=== PATIENT | female | born 1975 | race Caucasian/White ===

== ENCOUNTER → 2022-10-07 15:08 | Outpatient (BNVA) | payer MEDICARE, OTHER, SELFPAY | PROVIDERS: Visit Provider Physician Assistant ==

== ENCOUNTER 2022-12-16 15:45 | Outpatient (AMB) | payer OTHER, MEDICARE, SELFPAY ==
--- NOTE | 2022-12-16 15:49 | A.OFFVIS_ITS ---
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 He heard about our program from google search. His goal is to lose weight and achieve a healthy lifestyle as well as to improve, if not resolve, obesity related medical conditions, including KHLOE. He reports first being concerned about his weight about 34 years ago, highest weight to date was 280. Current weight is 273 with a BMI of 44.1. He has tried multiple methods of weight loss including fad diets without permanent results. He lives alone. 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 Hx of atrial ablation for AF at [facility] 04/2018. Seen by Cardiology, at [place], slightly enlarged atrium, no further recommendation except weight loss. He is a vegetarian He wakes at:?6 am, and goes to bed at?10 pm. Dinner is at 6 pm. Breakfast: chick pea pasta AM snack: energy snack balls Lunch: veggie hot dog w veg chilie PM snack: dried mushrooms/herrera seaweed Dinner: tempeh, tofu, veg After dinner: yogurt Other snacks: chips Liquids: 60 oz seltzer, no soda, 24 oz oj w immunity +, green tea/black tea Alcohol/marijuana/tobacco intake: no etoh, rare edible cannabis, no tobacco Exercise: vertical rowing machine, no gym membership(does not want t join), martial arts Tae Ruddy Do 3 x per week. GERD score: 0 INDERJIT score: 1 ESS score: 12 QOL score: 69 PFSH Surgical History Hx of colonoscopy Hx of prior ablation treatment Family History Mother No problems noted. Father No problems noted. Brother No problems noted. Brother No problems noted. Social History Alcohol intake: never Patient Tobacco Use Status: Never used Tobacco Review of Systems Const All systems reviewed & are unremarkable except as noted in HPI and below Physical Exam Vital Signs: Last Vital Signs Temp 97.8 F 12/16/22 15:53 Pulse 78 12/16/22 15:53 BP 122/60 12/16/22 15:53 Pulse Ox 97 12/16/22 15:53 Oxygen Delivery Method Room Air 12/16/22 15:53 BMI result Body Mass Index 48.4 Const General: cooperative, healthy appearing and no acute distress Orientation/consciousness: patient oriented x3 HEENT Head: Yes normal to inspection Ears: hearing grossly normal bilaterally General nose exam: Normal external nose present Face and sinus: Yes normal facial exam Eyes General: appearance normal, both eyes and all related structures Resp Effort & Inspection: normal respiratory effort Auscultation: clear to auscultation bilaterally Cardio Rate: regular rate Rhythm: regular rhythm Heart sounds: S1 normal heart sound present and S2 normal heart sound present GI Inspection: Yes normal to inspection, No distended and Yes obesity Palpation (GI): Soft to palpation, nontender and no guarding Auscultation: normal bowel sounds Skin General skin exam: no rashes or lesions noted Neuro General: patient oriented x3 Extrem General: No edema Psych Appearance: grossly normal Mental Status: mental status grossly normal Speech and movement: Normal speech and movement present Affect: normal affect Attitude: cooperative Assessment & Plan Assessment & Plan (1) Morbid obesity: Code(s): E66.01 - Morbid (severe) obesity due to excess calories Plan: This is a?47 yo male who will start our SWL program to prepare for bariatric surgery.? Blood work, h pylori , CXR, ECG, Abd US and UGI have been ordered. He is being scheduled for RD and BH initial consultations. He will start SWL classes and watch the first three videos before his next appointment. ? Adequate sleep of 7-8 hours per night discussed, awakening at 6 am and going to bed around 10 pm ? Purchase body composition analyzer scale (Manjit cuevas or Mary recommended) and check weight weekly. The best time to do this is first thing in the morning after going to the bathroom. 1. Nutritional counseling: Be sure to careful read the number of scoops per shake Start with 3 Orgain shakes ([employer], [employer], [employer], [employer]) First shake (2 scoops in 8 oz low fat unsweetened almond milk or water) at 7am- 9am, Second shake, (2 scoops in 8 oz low fat unsweetened almond milk or water) at 11am-1pm 1 protein bar (Fulfil bars at [employer], [employer], or [employer]) at 2pm-4pm. Dinner at 6pm (10 forks of protein and 10 forks of salad/vegetables). Meal to include lean protein (tofu, tempeh, seiten), cooked vegetables or a salad with olive oil and/or fruits (berries, pears, apples, kiwi). Avoid salt, breads, potatoes, rice, pasta, desserts. Another shake with 1 scoop in 8 oz unsweetened almond milk at 8pm-10pm. Try to drink 64 oz of water daily and avoid soda and juices. ?2. Each shake would be drunk slowly, like coffee in a period of 2 hours. ?3. Cut each bar in 4 pieces and eat each piece in 30 min ?to make each bar last 2 hours. ?4. I emphasized the importance of measuring accurately the food portion and measure it carefully when serving the food on the plate ?5. The meal portions include 10 full-size forks of meat and 10 full-size forks of salad. You always eat the meat portion but you can replace up to half of the forks of salad/vegetables with rice, potatoes or pasta, or a fruit ?if you like. The less you do it the better weight loss will be. ?6. One full-size fork is what can be scooped on the fork without falling aside and not what can be bit with the fork. Use regular forks like those you find in a typical restaurant. ?7.? Please send me weight measurements as soon as possible and then once a week. Always include your diet and exercise plan. Alternatively come weekly at the office for weight checks and send me the measurements. ?8. Exercise counseling: Begin by watching a stretching for beginners video. Start slowly and begin to stretch your muscles. You should do this before and after each exercise session to prevent injury. You stated you did not want to join a gym but you do have the vertical rowing machine at home. Continue using this 3-4 days per week, trying to reach a goal of 400 calories burned each session. If you are doing 20 minutes per session per day currently, try to increase by 2 minutes per day next week. Increase by 2 minutes per day the week after as well and so on until you are able to burn 400 calories per session. If you feel as though you can in crease by 5 minutes, then byb all means, go for it. Tracking calories is essential. 9. Alternatively start walking outside daily, tracking calories with a goal of 300 calories per day, daily. You can download the charo [employer] which can track your time, distance and calories while walking outside. You press start i n the charo when you start and then stop when you are finished. 10.? It is important to communicate by text weekly how you are doing and your weight. 11. Please get labs, EKG and chest X-Ray within 1 week. 12. Discussed and answered all questions regarding?obtained consent to participate in the [facility]?Registry. 13. Please follow the diet plan exactly, without any change. If you do not like something about the plan or you feel hungry, you need to communicate with me so I can help you revise the plan. You should not change the plan yourself. Text me at [phone] 14. Goal is to lose at least 12 pounds in the first month 15. Goal is to lose 10% of your weight before surgery, which is about 27 lbs. Ultimate weight goal: 246 lbs before surgery Patient is morbidly obese and is not considered stable at this time.?I spent a total of 70 minutes reviewing/updating records, examining the patient and counseling the patient on weight management as detailed above. Orders: Orders Vitamin B12 and Folate Today E66.01 - Morbid (severe) obesity due to excess calories Comprehensive Met. Panel Today E66.01 - Morbid (severe) obesity due to excess calories C Reactive Protein Today E66.01 - Morbid (severe) obesity due to excess calories Ferritin Today E66.01 - Morbid (severe) obesity due to excess calories Hemoglobin A1c Today E66.01 - Morbid (severe) obesity due to excess calories Insulin Today E66.01 - Morbid (severe) obesity due to excess calories IRON PROFILE Today E66.01 - Morbid (severe) obesity due to excess calories Lipid Panel Today E66.01 - Morbid (severe) obesity due to excess calories PTHI Today E66.01 - Morbid (severe) obesity due to excess calories TSH reflex Free T4 Today E66.01 - Morbid (severe) obesity due to excess calories Vitamin A Today E66.01 - Morbid (severe) obesity due to excess calories Vitamin B1 Today E66.01 - Morbid (severe) obesity due to excess calories Vitamin D 25-OH Total Today E66.01 - Morbid (severe) obesity due to excess calories Zinc Today E66.01 - Morbid (severe) obesity due to excess calories ECG 12 lead EKG Today E66.01 - Morbid (severe) obesity due to excess calories FL upper GI w air Today E66.01 - Morbid (severe) obesity due to excess calories Complete Blood Count Auto Diff Today E66.01 - Morbid (severe) obesity due to excess calories H Pylori Breath Test Today E66.01 - Morbid (severe) obesity due to excess calories US abdomen comp w elastography Today E66.01 - Morbid (severe) obesity due to excess calories XR chest 2V Today E66.01 - Morbid (severe) obesity due to excess calories Referrals Behavioral Health Referral E66.01 - Morbid (severe) obesity due to excess calories Nutrition/Dietitian Referral E66.01 - Morbid (severe) obesity due to excess calories Coding Level of Care Code New Pt Level 5 (55304) Diagnoses Morbid obesity E66.01 Time Spent (min) 70
[2022-12-16 15:53] VITALS: BP 122/60; PULSE 78; TEMP 36.6; O2SAT 97; BMI 48.4
== END 2022-12-16 17:34 | disposition home or self-care (01) ==
PROVIDERS: Visit Provider Physician Assistant Surgical
DX: E66.01 Morbid (severe) obesity due to excess calories (principal); Z68.42 Body mass index [BMI] 45.0-49.9, adult
CPT/HCPCS: 99205

== ENCOUNTER → 2022-12-16 15:45 | Outpatient (BNVA) | payer OTHER, MEDICARE, SELFPAY | PROVIDERS: Visit Provider Physician Assistant Surgical | DX: E66.01 Morbid (severe) obesity due to excess calories (principal); Z68.42 Body mass index [BMI] 45.0-49.9, adult | CPT/HCPCS: 99202 ==

== ENCOUNTER 2023-01-06 15:51 | Outpatient (AMB) | payer MEDICARE, OTHER, SELFPAY ==
--- NOTE | 2023-01-06 15:47 | A.OFFVIS_ITS ---
Intake VS Expanded 01/06/23 15:50 Height 5 ft 3 in Weight 263 lb BMI 46.6 Intake Visit Reasons: VIDEO Initial Nutrition SWL Art Coordinator Required: No Allergies No Known Allergies Allergy (Verified 12/16/22 15:52) HPI Nutrition Presentation Reason for consult elevated BMI Diet Assmnt Details Pt is a vegetarian - occasionally fish, eggs. minimal dairy. Has been a vegetarian since age 17 Two (7am and 11am) Protein shake Orgain 2 scoops with almond milk Bought orgain bars but is going to switch to zone 6pm dinner meal [employer] classes 3x per week , plus home exercise machines SWL online classes : none Was dx with afib 5 years ago. was inactive, started a new career and experienced a lot of weight regain . Previous weight loss methods attempted Tried IF but would get too hungry and make poor food choices Dietary counseling reduction Who buys your food self Who prepares/cooks your food self Meal frequency regular: lunch and dinner and irregular: breakfast Lifestyle Food frequency Fruit: daily, Vegetables: daily, Grains/pasta/breads/cereal (carbs): daily, Meat substitutes/nuts/seeds/legumes: daily, Water: daily (seltzers ) and Soda: never Diagnosis Nutrition problem #1 overweight/obesity As related to (etiology) #1 excess energy intake and physical inactivity As evidenced by (sign/symptom) #1 high BMI Monitoring/Goals Nutrition problem monitoring total energy intake, level of knowledge/skill, total PRO intake, total CHO intake and weight Outcome progress progressing Learning/Education Readiness to learn good Stages of change action Educational materials provided Yes Most Recent Diabetes Results: No Data to Display PFSH Surgical History Hx of colonoscopy Hx of prior ablation treatment Family History Mother No problems noted. Father No problems noted. Brother No problems noted. Brother No problems noted. Social History Alcohol intake: never Patient Tobacco Use Status: Never used Tobacco Assessment & Plan Assessment & Plan (1) Morbid obesity: Code(s): E66.01 - Morbid (severe) obesity due to excess calories Patient Instructions: Continue nutrition and exercise plans. complete online classes - link provided with educational information. f/u 02/10 3:30 Telehealth Telehealth Location of provider rendering services: practice address Location of patient: other (work, private location ) Patient Identification confirmed using: Name, : Yes Telehealth method: video Patient verbally consented to treatment: Yes Patient verbally consented to billing insurance company: Yes Patient informed of any privacy concerns related to visit: Yes Minutes spent on Phone/Video with Pt.: 35 Coding Level of Care Code Nutr Indiv Intake (82530) Diagnoses Morbid obesity E66.01 Time Spent (min) 35
[2023-01-06 15:50] VITALS: BMI 46.6
== END 2023-01-06 16:14 | disposition home or self-care (01) ==
LOC: HO.HBS 15:51
PROVIDERS: PCP Nurse Practitioner Family; Visit Provider Dietitian, Registered
DX: E66.01 Morbid (severe) obesity due to excess calories (principal)

== ENCOUNTER → 2023-01-06 15:51 | Outpatient (BNVA) | payer MEDICARE, OTHER, SELFPAY | PROVIDERS: PCP Nurse Practitioner Family; Visit Provider Dietitian, Registered | DX: E66.01 Morbid (severe) obesity due to excess calories (principal); Z68.42 Body mass index [BMI] 45.0-49.9, adult | CPT/HCPCS: 97802 ==

== ENCOUNTER 2023-02-03 14:30 | Outpatient (AMB) | payer OTHER, MEDICARE, SELFPAY ==
--- NOTE | 2023-02-03 14:06 | A.OFFWM_ITS ---
Intake Intake Visit Reasons: VIDEO BH Intake Allergies No Known Allergies Allergy (Verified 12/16/22 15:52) PFSH Surgical History Hx of colonoscopy Hx of prior ablation treatment Family History Mother No problems noted. Father No problems noted. Brother No problems noted. Brother No problems noted. Social History Alcohol intake: never Patient Tobacco Use Status: Never used Tobacco Behavioral Health Assessment Weight Management Therapy Therapy Notes Details Pt is looking to have weight loss surgery to help improve his health and quality of life. He has been in therapy with Leslie Brown [phone] since 2019 through virtual appointments, also was seeing psychiatrist nurse but not currently. Pt has no history of inpatient psychiatric admissions or problems with drugs or alcohol. Patient stated that he is on the spectrum and is being given mood stabilizer to keep him even keel . He later reported a history of depression and not taking very good care of himself but no history of self harming behaviors or suicide attempts. Presenting Concerns Referral Source provider Reason for referral weight loss surgery evaluation Precipitating Event obesity Living Situation Current Living Situation Rent At risk of losing current housing? No Satisfied with current living situation? Yes Comments Patient lives alone. His girlfriend of two years lives in [place]. Food/Weight/Diet Expectations of change weight loss and maintenance History/Relationship with food Pt stated that he was eating processed foods, high carb, also mindless eating snack foods. History/Relationship with weight He reported that he is currently at his heaviest. 5 years ago he was diagnosed with Afib. History/Relationship with dieting IF, vegetarian on and off since 17 Binge Eating Do you frequently eat large amounts of food in short periods of time, not feeling physically hungry? No Night Eating Do you wake up at least once during the night to eat? No If you wake up in the night, do you find that it is necessary to eat something in order to fall back asleep? 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 none Education Highest grade completed college Preferred learning style Auditory, Verbal, Written, Learn by doing and Visual Currently enrolled in educational program? No Interested in further educational program? 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 No Meaningful activities martial arts, reading, drawing, writing Financial Situation Describe current financial situation Occasional struggle Financial assistance? None Service Service? No Mental Health and Addiction Treatment Current/Past substance abuse? No Current/Past addictive behavior concerns? No Pain Screening Current pain? No Pain in the last few months? No Medications Is the patient compliant with medications? Yes Does the patient have Love Guardian in place? Not applicable Does the patient use complimentary health approaches? No Trauma/Abuse History History of trauma? Yes Assessment & Plan Assessment & Plan (1) Autism spectrum disorder: Code(s): F84.0 - Autistic disorder (2) Morbid obesity: Code(s): E66.01 - Morbid (severe) obesity due to excess calories Plan Patient is doing well per his report but does find the meal plan rigid . Questionnaires were not given at new patient appointment. His therapist will be contacted after he signs a release of information at his next appointment for her. He will be seen again in one month. Telehealth Telehealth Location of provider rendering services: practice address Location of patient: other Patient Identification confirmed using: Name, : Yes Telehealth method: video Patient verbally consented to treatment: Yes Patient verbally consented to billing insurance company: Yes Patient informed of any privacy concerns related to visit: Yes Minutes spent on Phone/Video with Pt.: 45 Coding Level of Care Code Tele Psy Acaciag Veronica ([id number]) Diagnoses Autism spectrum disorder F84.0 Morbid obesity E66.01 Time Spent (min) 45
== END 2023-02-03 14:46 | disposition home or self-care (01) ==
LOC: HO.HBST 14:30
PROVIDERS: PCP Nurse Practitioner Family; Visit Provider Counselor Mental Health
DX: F84.0 Autistic disorder (principal); E66.01 Morbid (severe) obesity due to excess calories; Z68.41 Body mass index [BMI] 40.0-44.9, adult
CPT/HCPCS: 90791

== ENCOUNTER → 2023-02-03 14:30 | Outpatient (BNVA) | payer OTHER, MEDICARE, SELFPAY | PROVIDERS: PCP Nurse Practitioner Family; Visit Provider Counselor Mental Health ==

== ENCOUNTER → 2023-02-08 15:00 | Outpatient (BNVA) | payer OTHER, MEDICARE, SELFPAY | PROVIDERS: PCP Nurse Practitioner Family; Visit Provider Physician Assistant Surgical | DX: E66.01 Morbid (severe) obesity due to excess calories (principal) ==

== ENCOUNTER 2023-08-25 15:50 | Outpatient (AMB) | payer OTHER, MEDICARE, SELFPAY ==
--- NOTE | 2023-08-25 15:52 | A.OFFVIS_ITS ---
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 He was last seen in the office 02/08/2023, at that time his weight was 256.8 lb with a BMI of 41.4. He decided he needed to take a break from the program. Weight today is 272.6 lb with a BMI of 48.3. He continues to mourn the of his mother and her recently broke up with his girlfriend of 2 years. He restarted his meal plan and exercise routine about 2 weeks ago. There has been a weight loss of 16.2 pounds since initiating the surgical weight loss program on 10.06 with a total body weight loss of 12/16/22 %. Pre op work up completed as follows: SWL classes:? 09/05 BH appts: f/u 03/03/23 ? ? RD appts: 02/10/23 Labs: not yet done H. pylori: not yet done CXR: not yet done EKG: not yet done ABD U/S: not yet done UGI: not yet done The patient reports he feels as though his belly size has reduced and his energy level is improved. He was not following the meal plan exactly as he would sometimes not do the third shake. . Current meal plan includes: 3 Orgain shakes First shake (2 scoops in 8 oz low fat unsweetened almond milk or water) at 7am-9am, Second shake, (2 scoops in 8 oz low fat unsweetened almond milk or water) at 11am-1pm 1 protein bar (atlas bar-20 gm) at 2pm-4 pm. Dinner at 6pm (10 forks of protein and 10 forks of salad/vegetables). Another shake with 2 scoop in 8 oz unsweetened almond milk at 8pm-10pm. Drinking 80-100 oz of water Current exercise plan includes: martial arts 2-3 x per week, [employer] machine, 5 days per week. PFSH Surgical History Hx of colonoscopy Hx of prior ablation treatment Family History Mother No problems noted. Father No problems noted. Brother No problems noted. Brother No problems noted. Social History Alcohol intake: never Patient Tobacco Use Status: Never used Tobacco Physical Exam Vital Signs: Last Vital Signs Temp 96.7 F L 08/25/23 15:59 Pulse 76 08/25/23 15:59 BP 149/67 H 08/25/23 15:59 Pulse Ox 95 08/25/23 15:59 Oxygen Delivery Method Room Air 08/25/23 15:59 BMI result Body Mass Index 44.0 Const General: healthy appearing and no acute distress Resp Effort & Inspection: normal respiratory effort Auscultation: clear to auscultation bilaterally Cardio Rate: regular rate Rhythm: regular rhythm GI Auscultation: normal bowel sounds Extrem General: Yes normal to inspection Assessment & Plan Assessment & Plan (1) Morbid obesity: Code(s): E66.01 - Morbid (severe) obesity due to excess calories Plan: Patient will restart the Surgical weight loss program. He states that he is now committed to his health and despite the recent loss of his mother and recent break-up with his girlfriend, he feels as though this time we will now allow him to focus on himself and his ability to better his health. We will change his meal plans slightly to incorporate the [place] protein bar that he wishes to use as well as continued use of orgain protein powder 3 Orgain shakes First shake (2 scoops in 8 oz low fat unsweetened almond milk or water) at 7am-9am, Second shake, (1 scoop in 8 oz low fat unsweetened almond milk or water) at 11am-1pm 1 protein bar (atlas bar-20 gm) at 2pm-4pm. Dinner at 6pm (10 forks of protein and 10 forks of salad/vegetables). Another shake with 1 scoop in 8 oz unsweetened almond milk at 8pm-10pm. He was reminded of the exercise commitment including tracking his calories on his home ski fitness machine with a goal of burning 300 per day. We will have him return to the office in approximately 4-6 weeks at which point we will reschedule him for appropriate diagnostic imaging. Coding Level of Care Code Est Pt Level 3 (06960) Diagnoses Morbid obesity E66.01
[2023-08-25 15:59] VITALS: BP 149/67; PULSE 76; TEMP 35.9; O2SAT 95; BMI 44.0
== END 2023-08-25 16:42 | disposition home or self-care (01) ==
PROVIDERS: PCP Nurse Practitioner Family; Visit Provider Physician Assistant Surgical
DX: E66.01 Morbid (severe) obesity due to excess calories (principal); Z68.41 Body mass index [BMI] 40.0-44.9, adult
CPT/HCPCS: 99213

== ENCOUNTER → 2023-08-25 15:50 | Outpatient (BNVA) | payer OTHER, MEDICARE, SELFPAY | PROVIDERS: PCP Nurse Practitioner Family; Visit Provider Physician Assistant Surgical ==

== ENCOUNTER 2023-11-09 16:30 | Outpatient (AMB) | payer OTHER, MEDICARE, SELFPAY ==
--- NOTE | 2023-11-09 13:20 | A.OFFVIS_ITS ---
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 He was last seen in the office 02/08/2023, at that time his weight was 256.8 lb with a BMI of 41.4. He decided he needed to take a break from the program. Weight today is 273 lb with a BMI of 44.1. He restarted his meal plan and exercise routine about 2 weeks ago. There has been a weight loss of 0 pounds since initiating the surgical weight loss program on 12/16/22. Pre op work up completed as follows: SWL classes:? 09/05 BH appts: f/u 03/03/23 ? ? RD appts: 02/10/23 Labs: not yet done H. pylori: not yet done CXR: not yet done EKG: not yet done ABD U/S: not yet done UGI: not yet done The patient reports he feels as though his pants are fitting better although he has not seen a significant decrease in the weight. He did not send me the full measurements of his body composition scale so it is difficult to determine what is happening. He is however following the meal plan and attempting to exercise more. He had labs done through outside provider showing a low B1, B12, D vitamin level. Current meal plan includes: 3 Orgain shakes First shake (2 scoops in 8 oz low fat unsweetened almond milk or water) at 7am-9am, Second shake, (1 scoop in 8 oz low fat unsweetened almond milk or water) at 11am-1pm 1 protein bar (atlas bar-20 gm) at 2pm-4pm. Dinner at 6pm (10 forks of protein and 10 forks of salad/vegetables). Another shake with 1 scoop in 8 oz unsweetened almond milk at 8pm-10pm. Drinking 80-100 oz of water Current exercise plan includes: martial arts 3 x per week, [employer] machine, 4-5 days per week. PFSH Surgical History Hx of colonoscopy Hx of prior ablation treatment Family History Mother No problems noted. Father No problems noted. Brother No problems noted. Brother No problems noted. Social History Alcohol intake: never Patient Tobacco Use Status: Never used Tobacco Telehealth Telehealth Telehealth Platform: Telephone Location of provider rendering services: practice address Location of patient: address on file Patient Identification confirmed using: Name, : Yes Telehealth method: voice only Patient verbally consented to treatment: Yes Patient verbally consented to billing insurance company: Yes Patient informed of any privacy concerns related to visit: Yes Minutes spent on Phone/Video with Pt.: 15 Assessment & Plan Assessment & Plan (1) Morbid obesity: Code(s): E66.01 - Morbid (severe) obesity due to excess calories Category: Medical Plan: We will continue current meal plan. Recommend increasing exercise as he is able to a goal of 350-400 calories 5 times per week. Supplement vitamins. Return to clinic 4-6 weeks Medications: New cyanocobalamin (vitamin B-12) 500 mcg PO DAILY 90 days 90 tabs 0RF cholecalciferol (vitamin D3) 125 mcg PO DAILY 90 days 90 caps 2RF thiamine HCl (vitamin B1) 100 mg PO DAILY 90 days 90 tabs 0RF
[2023-11-09 13:21] VITALS: BMI 44.1
== END 2023-11-09 16:43 | disposition home or self-care (01) ==
LOC: HO.HBS 16:31
PROVIDERS: PCP Nurse Practitioner Family; Visit Provider Physician Assistant Surgical
DX: E66.01 Morbid (severe) obesity due to excess calories (principal)
CPT/HCPCS: 99213

== ENCOUNTER → 2023-11-09 16:30 | Outpatient (BNVA) | payer OTHER, MEDICARE, SELFPAY | PROVIDERS: PCP Nurse Practitioner Family; Visit Provider Physician Assistant Surgical ==